=== PATIENT | female | born 1955 | race Caucasian/White ===

== ENCOUNTER 2017-04-16 17:44 | Emergency (ER) | payer OTHER ==
[2017-04-16 17:54] VITALS: BP 150/75; PULSE 98; RESP 16; TEMP 98
--- NOTE | 2017-04-16 18:25 | ED ---
General Adult HPI - General Chief complaint: Skin/Abscess/Foreign Body Stated complaint: food stuck in throat Time Seen by Provider: 04/16/17 17:50 Source: patient, RN notes reviewed Mode of arrival: ambulatory Limitations: no limitations - History of Present Illness Initial comments: This is a 62-year-old female with a past medical history significant for lymphedema. Patient comes in today because she was eating chicken and felt as though she swallowed a bone and she was having some pain in her throat she states she vomited and think she coughed it up but she still has some pain in the right side of her throat. Patient states she believes x-ray past the uvula. Patient is able to drink water and swallow her saliva. Patient denies any chest pain difficulty breathing or shortness of breath. Patient states she has not had issues with this in the past. - Related Data Home Medications Medication Instructions Recorded Confirmed No Known Home Medications [No 04/16/17 04/16/17 Known Home Medications] Allergies Allergy/AdvReac Type Severity Reaction Status Date / Time No Known Allergies Allergy Verified 04/16/17 18:34 Review of Systems ROS Statement: Those systems with pertinent positive or pertinent negative responses have been documented in the HPI. ROS Other: All systems not noted in ROS Statement are negative. Past Medical History Additional Past Medical History / Comment(s): lymphedema History of Any Multi-Drug Resistant Organisms: None Reported Past Surgical History: Section Past Psychological History: No Psychological Hx Reported Smoking Status: Current every day smoker Past Alcohol Use History: None Reported Past Drug Use History: None Reported General Exam - General Exam Comments Initial Comments: GENERAL: Patient is well-developed and well-nourished. Patient is nontoxic and well- hydrated and is in mild distress. ENT: Neck is soft and supple. No significant lymphadenopathy is noted. Oropharynx is clear. Moist mucous membranes. Neck has full range of motion without eliciting any pain. EYES: The sclera were anicteric and conjunctiva were pink and moist. Extraocular movements were intact and pupils were equal round and reactive to light. Eyelids were unremarkable. PULMONARY: Unlabored respirations. Good breath sounds bilaterally. No audible rales rhonchi or wheezing was noted. CARDIOVASCULAR: There is a regular rate and rhythm without any murmurs gallops or rubs. SKIN: Patient has massive bilateral lymphedema in her legs NEUROLOGIC: Patient is alert and oriented x3. Cranial nerves II through XII are grossly intact. MUSCULOSKELETAL: Normal extremities with adequate strength and full range of motion. No lower extremity swelling or edema. No calf tenderness. LYMPHATICS: No significant lymphadenopathy is noted PSYCHIATRIC: Normal psychiatric evaluation. Limitations: no limitations Course Vital Signs 04/16/17 17:51 Temperature 98 F Pulse Rate 98 Respiratory 16 Rate Blood Pressure 150/75 O2 Sat by Pulse 95 Oximetry Medical Decision Making - Medical Decision Making X-rays of the soft tissue of the neck and chest show no acute abnormality Disposition Clinical Impression: Globus hystericus Disposition: HOME SELF-CARE Instructions: Esophageal Foreign Body (ED) Referrals: He Cunningham MD [Primary Care Provider] - 1-2 days Time of Disposition: 18:54
--- NOTE | 2017-04-16 18:26 | XR ---
EXAMINATION TYPE: XR chest 2V DATE OF EXAM: 04/16/2017 COMPARISON: NONE HISTORY: Foreign body. Shortness of breath. TECHNIQUE: Frontal and lateral views of the chest are obtained. FINDINGS: Copious soft tissues partially obscure the lateral lungs. Hypoinflation accentuates the pul monary vasculature. Right hemidiaphragm elevation is noted. There is no focal air space opacity, ple ural effusion, or pneumothorax seen. The cardiac silhouette size is enlarged. The osseous structur es are intact. Degenerative changes of the thoracic spine and acromioclavicular joints are noted. No radiopaque foreign body. IMPRESSION: No radiopaque foreign body within the chest. Hypoventilatory lungs create accentuation o f the pulmonary vasculature. No focal consolidation.
--- NOTE | 2017-04-16 18:29 | XR ---
EXAMINATION TYPE: XR soft tissue neck DATE OF EXAM: 04/16/2017 COMPARISON: NONE HISTORY: Chicken bone stuck in the patient's throat. TECHNIQUE: Frontal and lateral radiographs of the soft tissues of the neck are submitted. FINDINGS: Calcific densities overlying the prevertebral soft tissues on the frontal image represent c arotid atheromatous calcifications on the frontal view. No prevertebral soft tissue swelling is seen. Moderate multilevel degenerative changes of the cervical spine are noted. No radiopaque foreign body is present. There is calcification of the thyroid cartilage. Lung apices are well aerated. IMPRESSION: No radiopaque foreign body or prevertebral soft tissue swelling. Incidentally noted carot id arterial calcifications and moderate multilevel degenerative change of spine.
== END 2017-04-16 19:10 | disposition home or self-care (01) ==
LOC: EC 17:44
DX: F45.8 Other somatoform disorders (principal); I89.0 Lymphedema, not elsewhere classified; F17.200 Nicotine dependence, unspecified, uncomplicated
CPT/HCPCS: 70360; 71046; 99283